=== PATIENT | male | born 1980 | race Caucasian/White ===

== ENCOUNTER 2016-10-06 09:42 | Emergency (ER) | payer OTHER ==
[2016-10-06] MEDS ORDERED: PHENTERMINE H37.5 M2 PO (10:28)
[2016-10-06] MEDS ORDERED: VALTREX500 M1 (10:29)
[2016-10-06] MEDS ORDERED: KEFLEX500 M4 PO (10:50)
[2016-10-06] MEDS ORDERED: BACTRIM DS TAB1 EAC2 PO (10:50)
== END 2016-10-06 11:00 ==
LOC: EDMED 09:42
DX: L02.821 Furuncle of head [any part, except face] (principal)